=== PATIENT | female | born 1995 | race Caucasian/White ===

== ENCOUNTER 2022-11-26 23:53 | Emergency (ER) | payer OTHER, SELFPAY ==
[2022-11-26 23:54] VITALS: BP 128/84; PULSE 119; RESP 18; TEMP 36.8; O2SAT 97; BMI 18.8
--- NOTE | 2022-11-27 00:47 | RAD_ITS ---
EXAM: XR CHEST, 2 VIEWS CLINICAL INDICATION: chest pain TECHNIQUE: Frontal and lateral views of the chest. This report was created using [employer] report generation technology. COMPARISON: None. FINDINGS: LUNGS AND PLEURAL SPACES: Right middle lobe consolidation. No pneumothorax. No effusion. HEART: Unremarkable. Cardiac silhouette not enlarged. MEDIASTINUM: Central airways and mediastinal contour are unremarkable. BONES/JOINTS: Unremarkable. SOFT TISSUES: Unremarkable. RAD/Chest PA and Lateral IMPRESSION: Right middle lobe consolidation. Findings consistent with pneumonia. Electronically Signed: Romel Hope MD at 1:24 EST ,
--- NOTE | 2022-11-27 00:49 | EKG12_ITS ---
Test Reason : CP Blood Pressure : / mmHG Vent. Rate : 094 BPM Atrial Rate : 094 BPM P-R Int : 126 ms QRS Dur : 078 ms QT Int : 334 ms P-R-T Axes : 070 064 046 degrees QTc Int : 417 ms Normal sinus rhythm Normal ECG Confirmed by ELIZABETH DILLON, ALEISHA ([id number]), visual effects editor SHANNON BRIONES ([id number]) on 11/28/2022 12:40:26 PM Referred By: Confirmed By:ALEISHA JOHNSON MD
[2022-11-27 01:11] LABS: Absolute Lymphocyte Count 1.02 X10^3/uL (0.83-4.51); Absolute Neutrophil Count 8.9 X10^3/uL (2.0-7.7); Basophil# 0.06 X10^3/uL; Basophil% 0.5 % (0-1); Hematocrit 38.5 % (37-47); Hemoglobin 12.4 g/dL (12.0-15.0); Lymphocyte # 1.02 X10^3/ul (0.83-4.51); Lymphocyte % 9.2 % (19-41); Mean Corp Hgb Conc 32.2 g/dL (32-36); Mean Corpuscular Hgb 27.4 pg (27.0-32.0); Mean Platelet Vol. 8.2 fl (6.2-12.0); Monocyte# 1.06 X10^3/uL; Monocyte% 9.5 % (0-10); NRBC Flagged by Analyzer 0 % (0-5); Neutrophil # 8.91 X10^3/uL (2.7-7.7); Neutrophil % 80.2 % (47-70); Platelet Count 245 K/mm3 (150-450); RBC Distribution Width CV 13.3 % (11.6-14.6); RBC Distribution Width SD 41.3 fl (35.1-43.9); Red Blood Count 4.53 M/mm3 (4.2-5.4); White Blood Count 11.1 K/mm3 (4.4-11.0)
[2022-11-27 01:30] LABS: D-Dimer Quantitative (DVT/PE) 1.22 FEU/ug/m (0.27-0.49)
--- NOTE | 2022-11-27 01:31 | CT_ITS ---
EXAM: CT ANGIOGRAPHY CHEST WITHOUT AND WITH INTRAVENOUS CONTRAST CLINICAL INDICATION: elevated ddimer TECHNIQUE: Helically acquired angiography images were obtained of the chest without and with intravenous contrast. This CT exam was performed using one or more of the following dose reduction techniques: automated exposure control, adjustment of the mA and/or kV according to patient size, and/or use of iterative reconstruction technique. This report was created using [employer] report generation technology. MIP reconstructed images were created and reviewed. CONTRAST: IV 75mL Isovue-370 COMPARISON: Plain film from same date. FINDINGS: PULMONARY ARTERIES: Unremarkable. Normal in caliber. No evidence of pulmonary embolism. AORTA: Unremarkable. Normal in caliber. No evidence of dissection. GREAT VESSELS OF AORTIC ARCH: Unremarkable. Normal in caliber. No evidence of dissection. LUNGS AND PLEURAL SPACES: Possible endobronchial lesion in the right middle lobe bronchus seen on axial images 114 through 117. Right middle lobe collapse/consolidation. Small right pleural effusion. No pneumothorax. HEART: Unremarkable. Heart size is normal. No pericardial effusion. No signs of right heart strain, ratio of right ventricle to left ventricle measures less than 1. MEDIASTINUM: Subcarinal and right hilar adenopathy, measuring up to 1.3 cm. Esophagus is unremarkable. No hiatal hernia. THYROID: Unremarkable. No thyroid lesions. BONES/JOINTS: Unremarkable. No suspicious lytic or blastic abnormality. CT/CTA Chest W/WO Contrast IMPRESSION: 1. Right middle lobe collapse/consolidation. While this may indicate pneumonia, there is a possible endobronchial lesion within the right middle lobe bronchus. Pulmonology follow-up is recommended with consideration for bronchoscopy. 2. Subcarinal and right hilar adenopathy, measuring up to 1.3 cm. 3. No evidence of pulmonary embolism. 4. Small right pleural effusion. Electronically Signed: Romel Hope MD at 2:21 EST ,
[2022-11-27 01:42] LABS: ALB/GLOB Ratio 0.9 RATIO (0.9-2.4); AST(SGOT) 7 U/L (15-37); Alanine Aminotransfer ALT/SGPT 11 U/L (13-56); Albumin, Serum 3.5 g/dL (3.2-5.0); Alkaline Phosphatase 64 U/L (45-117); Anion Gap 6 (5-15); BUN 12 mg/dL (7-18); BUN/Creat Ratio 16.8 RATIO (10-20); Chloride 106 mmol/L (98-107); Creatinine, Serum 0.71 mg/dL (0.55-1.02); EST Glomerular Filtration Rate 105 mL/min (>60); Est Glom Filt Rate - Afr Amer 126 mL/min (>60); Estimated Creatinine Clearance 88.71 ml/min; Globulin 4.1 g/dL (2.2-4.2); Glucose 151 mg/dL (74-106); Protein, Total 7.6 g/dL (6.4-8.2); Sodium Level 138 mmol/L (136-145)
[2022-11-27 02:09] VITALS: PULSE 97; RESP 18; O2SAT 99
--- NOTE | 2022-11-27 02:52 | EX.ED.DYSGE1 ---
HPI History of Present Illness Chief Complaint: Chest Pain Narrative Narrative: Patient is a 26-year-old female with past medical history of Graves' disease. She states she has had a few weeks of congestion and cough. She states that she felt symptoms were improving but then she developed increasing right lower chest pain. She denies any family history of cardiac disease at a young age. She denies any recent travel surgery or history of DVT/PE. She states that she is concerned that she is developing pneumonia based on her persistent cough and now chest discomfort and with this comes in for evaluation [facility] Medical History (Updated 11/27/22 @ 02:[address] Jatin Lundberg, DO) Graves disease Home Medications doxycycline monohydrate 100 mg capsule 100 mg PO BID #20 CAPSULES 11/27/22 [Rx Last Taken Unknown] promethazine 6.25 mg-codeine 10 mg/5 mL syrup 5 ml PO 4X/DAY PRN PRN cough 7 days #140 mL 11/27/22 [Rx Last Taken Unknown] Allergy/AdvReac Type Severity Reaction Status Date / Time latex Allergy Rash Verified 11/26/22 23:56 Social History Smoking Status: Never smoker ROS ROS ED Constitutional Constitutional ED: Denies chills or fever(s) ENT ENT ED: Reports rhinorrhea and sore throat Cardiovascular Cardiovascular: Reports chest pain Respiratory/Chest Respiratory/Chest: Reports cough; Denies dyspnea Gastrointestinal Gastrointestinal: Denies abdominal pain, diarrhea, nausea or vomiting Genitourinary Genitourinary ED: Denies dysuria Musculoskeletal Musculoskeletal: Reports myalgias Integumentary Denies rash Neurologic Neurologic: Denies headache(s) Hematologic/Lymphatic Hematologic/Lymphatic: Denies easy bleeding or easy bruising EXAM Physical Exam Const Vital Signs: 11/26/22 23:54 11/27/22 02:09 11/27/22 03:01 Temperature 98.2 F Temperature Source Temporal Pulse Rate 119 H 97 95 Respiratory Rate 18 18 18 Blood Pressure 128/84 H 137/60 H Blood Pressure Mean 98 Pulse Ox 97 99 97 Oxygen Delivery Method Room Air Room Air Positive well nourished and well developed General Appearance ED: well developed HEENT Reports moist mucous membranes HEENT Narrative: Cobblestoning noted in the posterior pharynx consistent with sinus drainage without airway edema or compromise. No signs of infection in the posterior pharynx Eyes PERRL and EOMs intact bilaterally Neck supple and no JVD Chest Wall palpation of chest normal Chest Narrative: No bony deformity or crepitance Resp normal respiratory effort Resp Narrative: Breath sounds are diminished in the right lower lobe with rhonchi at this site concerning for developing pneumonia however no nasal flaring retractions tachypnea or accessory muscle use Cardio regular rhythm Rate: tachycardic and other Other Details: Tachycardic rate with regular rhythm radial pulses are plus 2 out of 4 bilaterally are equal and symmetric GI normal to inspection, nondistended, normoactive bowel sounds, non-tender, non-distended and no masses Auscultation: normoactive bowel sounds Palpation: soft Extremity normal to inspection Extremity Narrative: No asymmetric edema no pitting edema negative Homans' sign bilaterally Neuro oriented x3 and CN's II-XII intact bilaterally Sensorium / Orientation: alert Psych mental status grossly normal Skin no rashes or lesions noted MDM MDM MDM Narrative Medical decision making narrative: Patient presented to the ER mildly tachycardic but otherwise afebrile and in no acute respiratory distress. She is low risk for cardiac disease as well as PE/DVT but with her chest pain and tachycardia I did elect to perform a D-dimer. D-dimer is elevated at 1.22 and therefore with concern for developing pulmonary embolus as a cause of her symptoms a CTA was obtained. CTA revealed a lesion in the right lower lobe consistent with developing pneumonia versus endobronchial obstruction but no PE or pneumothorax or pleural effusion. The patient does not have signs of respiratory distress she is not requiring supplemental oxygen she does not have severe electrolyte derangement or acute kidney injury. Therefore at this time we will place the patient on antibiotics secondary to developing infection based on the x-ray and CAT scan. However because there is a possible endobronchial lesion and she may need a bronchoscopy she will also be referred to pulmonology. As she is not in acute respiratory distress or requiring supplemental oxygen there is no need for admission or emergent consultation. Lab Data Attestation: I reviewed the patient's lab results. Labs: Laboratory Results - last 24 hr 11/27/22 11/27/22 11/27/22 01:03 01:03 01:03 WBC 11.1 H RBC 4.53 Hgb 12.4 Hct 38.5 MCV 85.0 MCH 27.4 MCHC 32.2 RDW Std Deviation 41.3 RDW Coeff of Kimmie 13.3 Plt Count 245 MPV 8.2 Immature Gran % (Auto) 0.600 Neut % (Auto) 80.2 H Lymph % (Auto) 9.2 L [place] % (Auto) 9.5 Eos % (Auto) 0.0 Baso % (Auto) 0.5 Absolute Neuts (auto) 8.9 H Absolute Lymphs (auto) 1.02 Nucleated RBC % 0 D-Dimer Quant (PE/DVT) 1.22 H* Sodium 138 Potassium 4.0 Chloride 106 Carbon Dioxide 26.0 Anion Gap 6 BUN 12 Creatinine 0.71 Estim Creat Clear Calc 88.71 Est GFR (MDRD) Af Amer 126 Est GFR (MDRD) Non-Af 105 BUN/Creatinine Ratio 16.8 Glucose 151 H Calcium 9.0 Total Bilirubin 0.40 AST 7 L ALT 11 L Alkaline Phosphatase 64 Total Protein 7.6 Albumin 3.5 Globulin 4.1 Albumin/Globulin Ratio 0.9 Radiography Diagnostic Testing: Clinical Impression(s) from Imaging Studies Chest X-Ray 11/27/22 00:47 IMPRESSION: Right middle lobe consolidation. Findings consistent with pneumonia. Electronically Signed: Romel Hope MD at 1:24 EST Reading Location ID and State: [facility] / [place] Tel , Service support , Chest CTA 11/27/22 01:31 IMPRESSION: 1. Right middle lobe collapse/consolidation. While this may indicate pneumonia, there is a possible endobronchial lesion within the right middle lobe bronchus. Pulmonology follow-up is recommended with consideration for bronchoscopy. 2. Subcarinal and right hilar adenopathy, measuring up to 1.3 cm. 3. No evidence of pulmonary embolism. 4. Small right pleural effusion. Electronically Signed: Romel Hope MD at 2:21 EST , Chest x-ray as interpreted by the emergency medicine physician reveals right middle to lower lobe consolidation without pneumothorax or pleural effusion Discharge Plan Triage Chief Complaint: Chest Pain ED Provider: Jatin Lundberg Dx/Rx/DC Orders Clinical Impression: Right lower lobe pneumonia Instructions: ED Pneumonia (Adult) Prescriptions: New doxycycline monohydrate 100 mg capsule 100 mg PO BID Qty: 20 0RF promethazine-codeine 6.25-10 mg/5 mL syrup 5 ml PO 4X/DAY PRN PRN (Reason: cough) 7 Days Qty: 140 0RF Stand Alone Forms: Work / School Excuse Primary Care Provider: Care Physician,No Primary Referrals: Malik Root MD [Med Staff - Active Staff] - Care Physician,No Primary [Primary Care Provider] - Activity Restrictions/Additional Instructions: Please take your medications as directed to help control/resolve your symptoms. Follow-up with pulmonology to discuss need for bronchoscopy and return to the ER should you have any further concerns. Disposition Disposition: Home, Self Care Discharge Date/Time: 11/27/22 03:01
[2022-11-27 03:01] VITALS: BP 137/60; PULSE 95; RESP 18; O2SAT 97
== END 2022-11-27 03:01 | disposition home or self-care (01) ==
PROVIDERS: Emergency Provider Emergency Medicine; Visit Provider Emergency Medicine
DX: J18.9 Pneumonia, unspecified organism (principal)
CPT/HCPCS: 71046; 71275; 80053; 85025; 85379; 93005; 99282; Q9967; A4216

== ENCOUNTER → 2022-12-16 | Outpatient (CLI) | payer OTHER, SELFPAY ==
--- NOTE | 2022-12-16 14:35 | RAD_ITS ---
EXAM: XR CHEST, 2 VIEWS CLINICAL INDICATION: cough TECHNIQUE: Frontal and lateral views of the chest. This report was created using [employer] report generation technology. COMPARISON: 11/27/2022 FINDINGS: LUNGS AND PLEURAL SPACES: There is again haziness seen within the right midlung which may represent developing right middle lobe pneumonia. No pneumothorax. No effusion. HEART: Unremarkable. Cardiac silhouette not enlarged. MEDIASTINUM: Central airways and mediastinal contour are unremarkable. BONES/JOINTS: Unremarkable. SOFT TISSUES: Unremarkable. RAD/Chest PA and Lateral IMPRESSION: Persistent haziness in the right midlung which may represent right middle lobe pneumonia. Electronically Signed: Real Miramontes MD at 0:12 EDT ,
[2022-12-16 15:37] LABS: Thyroid Stim Hormone (TSH) 1.83 uIU/mL (0.358-3.74)
== END | disposition home or self-care (01) ==
PROVIDERS: Visit Provider Internal Medicine
DX: E05.00 Thyrotoxicosis with diffuse goiter without thyrotoxic crisis or storm (principal); R05.9 Cough, unspecified
CPT/HCPCS: 36415; 71046; 84443

== ENCOUNTER → 2023-01-02 | Outpatient (CLI) | payer OTHER, SELFPAY ==
[2023-01-02 15:46] LABS: Hematocrit 38.3 % (37-47); Hemoglobin 12.3 g/dL (12.0-15.0); Mean Corp Hgb Conc 32.1 g/dL (32-36); Mean Corpuscular Hgb 27.3 pg (27.0-32.0); Mean Corpuscular Volume 85.1 fL (81-99); Mean Platelet Vol. 8.7 fl (6.2-12.0); Platelet Count 276 K/mm3 (150-450); RBC Distribution Width CV 13.3 % (11.6-14.6); RBC Distribution Width SD 41.4 fl (35.1-43.9)
[2023-01-02 15:55] LABS: International Normalized Ratio 1.1; Prothrombin Time (Protime)PT. 13.6 SECONDS (11.7-14.9)
[2023-01-02 15:56] LABS: Partial Thromboplast Time 28.5 Seconds (24.1-36.2)
[2023-01-02 16:17] LABS: Anion Gap 4 (5-15); BUN 12 mg/dL (7-18); Calcium,Total 8.7 mg/dL (8.5-10.1); Chloride 109 mmol/L (98-107); EST Glomerular Filtration Rate 106 mL/min (>60); Est Glom Filt Rate - Afr Amer 128 mL/min (>60); Glucose 87 mg/dL (74-106); Potassium 3.8 mmol/L (3.5-5.1); Sodium Level 140 mmol/L (136-145)
== END | disposition home or self-care (01) ==
LOC: LAB 15:13
PROVIDERS: Referring Provider Nurse Practitioner Acute Care; Visit Provider Nurse Practitioner Acute Care
DX: R05.9 Cough, unspecified (principal); I48.91 Unspecified atrial fibrillation
CPT/HCPCS: 36415; 80048; 85027; 85610; 85730

== ENCOUNTER → 2023-01-08 | Outpatient (CLI) | payer OTHER, SELFPAY ==
--- NOTE | 2023-01-08 07:03 | CT_ITS ---
STUDY: CT CHEST WITH CONTRAST REASON FOR EXAM: Female, 27 years old. Endobronchial mass -- with pending bronchoscopy RADIATION DOSAGE (If Supplied By Facility): CTDIvol = ( 7.31 ) mGy, DLP = ( 171.16 ) mGycm TECHNIQUE: Transaxial imaging was performed following intravenous administration of IV 75mL Isovue-300. Multiplanar coronal and sagittal images were reformatted. Individualized dose optimization techniques were used for this CT. COMPARISON: Comparison is made with prior examination August 27, 2023. FINDINGS: CHEST There is partial collapse of the right middle lobe. There is a soft tissue density within the right middle lobe bronchus. Correlation with bronchoscopy is recommended. The amount of volume loss in the right middle lobe as improved as compared to prior study. The remainder of the examination is unremarkable. There is no demonstrated pleural abnormality. Normal heart and pericardium. Normal mediastinum. Normal hilar regions. Normal unenhanced pulmonary arteries. Normal aorta arch and descending thoracic aorta. Normal osseous structures. There is no demonstrated abnormality of the visualized upper abdomen. CT/Chest WITH Contrast IMPRESSION: Almost complete collapse of the right middle lobe with soft tissue density seen within the corresponding bronchus. This has improved as compared to prior study. Correlation with bronchoscopy is recommended. Electronically Signed: Juan Daniel Valentine MD at 14:36 EDT ,
== END | disposition home or self-care (01) ==
PROVIDERS: Referring Provider Nurse Practitioner Acute Care; Visit Provider Nurse Practitioner Acute Care
DX: R91.8 Other nonspecific abnormal finding of lung field (principal)
CPT/HCPCS: 71260; Q9967

== ENCOUNTER 2023-01-09 11:49 | Day surgery (SDC) | payer OTHER, SELFPAY ==
[2023-01-09] VITALS (7 sets, daily range): BP systolic 98–113; BP diastolic 64–75; PULSE 52–68; RESP 14–16; TEMP 36.4; O2SAT 99–100; BMI 18.9
--- NOTE | 2023-01-09 | FLU_PTH ---
PATIENT: KATARINA DUBON LOC: EN U#:[id number] AGE/SX: 27/F ROOM: RE01/09/[address]: Dr. Benedicto Burnham MD : 1995 BED: DIS: 01/09/2023 SPEC #: [id number] RECD: 01/09/23 14:26 STATUS: NATHANAEL RERogelio #: [id number] HUEY: 01/09/23 00:[address]: Benedicto Burnham DEPT: CYTOLOGY RECD BY: Tez Cooper ENTERED: 01/12/23 10:11 SP TYPE: Fluid OTHR DR: Emily Primary Care Phys Tissues: Lung, NOS Procedures: PC (control) Special Stain Group II Special Stain Group I Surgery Specimen Level IV AFB Stain (control) GMS Stain (control) Cytospin Fluid HEADER OPERATION: Bronchoscopy (MAC) with endobronchial biopsy PRE-OP DIAGNOSIS: Right middle lobe endobronchial mass TISSUE SUBMITTED: Right middle lobe washings DIAGNOSIS CYTOLOGY Right middle lobe washings fluid (cytospin and cell block): Negative for malignant cells. See comment. JAXON:anjel 01/13/2023 COMMENT Special stains for acid fast bacilli, fungi and pneumocystis carinii are negative for organisms; matched controls are appropriate. Correlation with clinical, radiologic findings and appropriate follow up are necessary. Please also correlate with corresponding surgical specimen [id number], tumor right middle lobe, endobronchial biopsy with diagnosis of ? carcinoid tumor (well-differentiated neuroendocrine tumor).? Case has been reviewed in consultation with Dr. Engel who concurs with the above diagnosis. IDC:AM CYTOLOGY STUDY Slides are reviewed. CYTOLOGY GROSS Received is 45 ml of mucoidy cloudy fluid labeled with the patient's name and and designated per the requisition as right middle lobe washings. Submitted for cytology preparation including cell block. / anjel 01/12/2023 TC:5 CPT: 09169, 95467, 48576 x3
--- NOTE | 2023-01-09 | IMM_PTH ---
PATIENT: KATARINA DUBON LOC: EN U#:[id number] AGE/SX: 27/F ROOM: RE01/09/[address]: Dr. Benedicto Burnham MD : 1995 BED: DIS: 01/09/2023 SPEC #: [id number] RECD: 01/13/23 13:46 STATUS: NATHANAEL REQ #: [id number] HUEY: 01/09/23 00:[address]: Benedicto Burnham DEPT: IMMUNOHISTOCHEMISTRY RECD BY: Priyanka Dominguez ENTERED: 01/13/23 13:48 SP TYPE: IMMUNO OTHR DR: No Primary Care Phys Tissues: Right middle lobe of lung, NOS Procedures: Synapto (add) CD45 (add) CD56 (add) CHROMO (add) CK20 (add) CK7 (add) CK8 (add) KI-67 (add) P53 (add) TTF1 (add) Pankeratin (initial) PHYSICIAN & [address] [address] SPECIMEN INFORMATION: Tissue Source: Tumor right middle lobe Clinical Info: Right middle lobe bronchial mass Specimen Number: [id number] CPT code: 34116, 17252 x10 METHODOLOGY: Deparaffinized sections of prefer/formalin-fixed tissue or PAP/DQ stained slides are incubated with monoclonal/polyclonal antibodies/oligonucleotide probes. Localization is made via biotin free immunoperoxidase method. Appropriate controls are performed and reacted as expected. Results on target cell population are indicated in the following table: RESULTS: ANTIBODY / CLONE RESULT AE1-3 (AE1/AE3/PCK26) positive, perinuclear dot like pattern CK7 (OV-TL12/30) negative CK8 (20yxsnK24) positive, perinuclear dot like pattern CK20 (KS20.8) negative CD45 (RP2/18) negative CD56 (123C3.D5) positive Chromo (LK2H10) positive Synapto (polyclonal) positive TTF-1 (8G7G3/1) negative Ki-67 (30-9) positive, very low, ~1-2% P53 (DO-7) positive, rare cells, weak, (wild type pattern) These tests were developed and their performance characteristics determined by [facility]. They may not have been cleared or approved by the U.S. Food and Drug Administration. The FDA has determined that such clearance or approval is not necessary. The above immunohistochemical/dualISH markers are ordered and reviewed by the Pathologist. INTERPRETATION: Tumor right middle lobe, endobronchial biopsy: Ccarcinoid tumor (well-differentiated neuroendocrine tumor). This case has been reviewed in consultation with Dr. Engel who concurs with the above diagnosis. SJ:anjel 01/14/2023
--- NOTE | 2023-01-09 | LUNG_PTH ---
PATIENT: KATARINA DUBON LOC: EN U#:[id number] AGE/SX: 27/F ROOM: RE01/09/[address]: Dr. Benedicto Burnham MD : 1995 BED: DIS: 01/09/2023 SPEC #: [id number] RECD: 01/09/23 14:26 STATUS: NATHANAEL REQ #: [id number] HUEY: 01/09/23 00:[address]: Benedicto Burnham DEPT: SURGICAL PATHOLOGY RECD BY: Tez Cooper ENTERED: 01/12/23 10:11 SP TYPE: LUNG BX OTHR DR: Emily Primary Care Phys Tissues: Lung, NOS Procedures: PC (control) Special Stain Group I Surgery Specimen Level IV AFB Stain (control) GMS Stain (control) HEADER OPERATION: Bronchoscopy (MAC) with endobronchial biopsy PRE-OP DIAGNOSIS: Right middle lobe endobronchial mass TISSUE SUBMITTED: Tumor right middle lobe MICROSCOPIC DIAGNOSIS Tumor right middle lobe, endobronchial biopsy: Carcinoid tumor (Well-differentiated neuroendocrine tumor). See comment. JAXON:anjel 01/13/2023 COMMENT Immunohistochemistry ([id number]) supports the above diagnosis. Mitosis or necrosis are not seen. Special stains for acid fast bacilli, fungi and pneumocystis carinii are negative for organisms; matched controls are appropriate. Correlation with clinical, radiologic findings and appropriate follow up are necessary. Case has been reviewed in consultation with Dr. Engel who concurs with the above diagnosis. IDC:AM MICROSCOPIC DESCRIPTION Slides are reviewed. GROSS DESCRIPTION Received in fixative is one container labeled with the patient's name and designated tumor right middle lobe. The specimen consists of multiple irregular fragments of light holliday soft tissue that in aggregate measure 1.0 x 0.5 x 0.1 cm. The specimen is totally submitted in one cassette. / JAXON:anjel 01/12/2023 TC:1 CPT: 51844, 68175 x3
[2023-01-09] MEDS: Lactated Ringers 1,000 ML 15 ML IV (12:21)
[2023-01-09 12:24] LABS: Internal QC Validated? YES +Cl - CLEAR BKGD; Pregnancy, Urine Negative Negative
--- NOTE | 2023-01-09 13:00 | PCM.HP.STD ---
HPI - General General Date of Service: 01/09/23 Chief Complaint: Cough HPI Narrative This 27-year-old woman presents for an elective outpatient bronchoscopy to evaluate her right middle lobe endobronchial mass. The patient was seen in the hospital for a right middle lobe pneumonia on 11/27/2022.? She had a medial segment right middle lobe infiltrate, white count of 11.1, with 80% neutrophilsNormal eosinophils, and an elevated D-dimer.? She was treated with antibiotics and improved.? She is a never smoker does not use drugs never vape.? Because of this risk profile and the slow clearance of the right middle lobe pneumonia and appearance of probable endobronchial lesion on CAT scan, she came back for repeat study and elective bronchoscopy. She has no carcinoid symptoms.? She has a history of Graves' disease, chronic cough, but is otherwise healthy. Today's vital signs are 113/65 pulse 60, respirations 16, temperature 97.6.? O2 saturations is 100% on room air. Physical exam will be dictated separately with a bronchoscopy note. Prebronchoscopy labs from 01/02/2023 were reviewed and found to be acceptable for bronchoscopy including chemistries, CBC and coagulation profile.? Her white count is normal, and TSH on 12/16/2022 was normal at 123 her urine test today is negative. Chest CT scan images and report was reviewed from 01/08/2023.? It shows persistence of the right middle lobe endobronchial mass, right middle lobe atelectasis medial segment.? No effusion PFSH Medical History (Updated 01/05/23 @ 13:37 by Amalia Zamora) Alcohol use Anemia Graves disease History of pneumonia Non-smoker Wears contact lenses Home Medications NK 01/05/23 [History Last Taken Unknown] Allergy/AdvReac Type Severity Reaction Status Date / Time latex Allergy Rash Verified 01/09/23 12:19 Family History (Updated 12/16/22 @ 13:53 by Edel Jackman) Grandfather Heart disease Surgical History (Updated 01/05/23 @ 13:37 by Amalia Zamora) Hx of eye surgery [place] teeth extracted Social History (Updated 12/16/22 @ 13:52 by Edel Jackman) adopted: No household members: none housing: apartment current occupational status: employed current occupation: [employer] Smoking Status: Never smoker Vital Signs Vital Signs Vital Signs: 01/09/23 12:19 01/09/23 12:19 Temperature 97.6 F L Temperature Source Temporal Pulse Rate 60 Respiratory Rate 16 Respiratory Pattern Normal Blood Pressure 113/65 Blood Pressure Mean 81 Blood Pressure Source Monitor Blood Pressure Position Semi-Fowlers Blood Pressure Location Right Arm Pulse Ox 100 Oxygen Delivery Method Room Air Weight Weight: 103 lb 9.876 oz Body Mass Index (BMI) 18.9 Reviewed preprocedure for 723 Results Medical Records Data Attestation: I reviewed the patient's medical records Medical records narrative: Prebronchoscopy labs from 01/02/2023 were reviewed and found to be acceptable for bronchoscopy including chemistries, CBC and coagulation profile.? Her white count is normal, and TSH on 12/16/2022 was normal at 123 her urine test today is negative. Chest CT scan images and report was reviewed from 01/08/2023.? It shows persistence of the right middle lobe endobronchial mass, right middle lobe atelectasis medial segment.? No effusion Lab / Micro Data Labs: Laboratory Results - last 24 hr 01/09/23 12:00: Urine Test Negative Assessment & Plan Assessment/Plan (1) Endobronchial mass: (2) Graves disease: (3) History of pneumonia: PLAN: Plan Impression: 1.? Postobstructive right middle lobe medial segment pneumonia, due to persistent endobronchial mass on CT scan of the chest.? Possible carcinoid versus other nonneoplastic or neoplastic mass.? Prebronchoscopy labs are acceptable to proceed with bronchoscopy, and persistent mass on chest CT scan yesterday shows the indication for bronchoscopy persists. 2.? Graves' disease, well controlled. 3.? Possible carcinoid tumor, with no carcinoid syndrome symptoms Plan: Proceed with elective bronchoscopy.? See operative notes.
--- NOTE | 2023-01-09 14:20 | PCM.OP.PRO ---
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 Tumor occluded 80% of the airway, unable to push the scope past the primary lesion for distal inspection. Type to be determined on pathology with special stains. - Sample sent for washings: Culture and sensitivity, AFB smear and culture, cytospin, with neuroendocrine markers and germ cell tumor markers. - Endobronchial biopsy x5, sent for routine histopathology plus neuroendocrine and germ cell tumor markers. - Patient can be discharged when she reaches normal discharge criteria - I expect a small amount of hemoptysis for 1 to 3 days. PLAN: Plan As above Patient tolerated the procedure well, 100% O2 saturation on room air with stable vital signs in the PACU immediately after the procedure, awake, alert, talking. Procedure Report Date of Procedure: 01/09/23 Patient physical exam prior to the procedure: (the patient's mother was present at the bedside at the time of exam) Unchanged from office visit note. Airway is Mallampati 2, lungs are clear bilaterally with no wheezes rales or rhonchi. No focal consolidation. No pleural rub. Cardiac: Normal S1-S2 with no murmurs rubs or gallops Extremities have no clubbing cyanosis or edema Skin is normal, warm and dry. No rash or lesions. Neuro: Nonfocal. Patient able to make her own decisions, alert and oriented x3 Video bronchoscopy, with endobronchial biopsies, washing, under moderate conscious sedation. Indication: Right middle lobe mass with postobstructive pneumonia/atelectasis of the medial right middle lobe segment After prebronchoscopy labs and CT scan were reviewed and found to be acceptable for the procedure, and informed consent was obtained, the patient had moderate conscious sedation under moderate anesthesia care in the endoscopy unit. After an adequate level of sedation was obtained, the video bronchoscope was introduced via the oral route with a pediatric bite-block in place. The airway was entered on the first bronchoscope pass, and remained in place for the 27 minutes of the procedure. The upper airway was normal, the vocal cords moved well bilaterally, no vocal cord lesions erythema or mass were noted. The trachea was normal throughout its length with no masses,'s stricture, erythema or thrush. The elvin was sharp, and the airways were widely patent. Secretions were clear and thin, with no purulence or blood noted. After instilling 2 cc of 2% lidocaine total down the right and left mainstem bronchus,, the left lung was inspected and found to be normal to the second segmental bronchus level. The right upper lobe and right lower lobe were inspected and found to be normal to the second segmental bronchus level. At the entry of the right middle lobe, shiny, lobulated, pale pinkish-white tumor was found, and obstructed the airway by 80%. The tumor was firmly adherent to the posterior medial wall of the right middle lobe and seem to be emanating from it. I could not push past the primary lesion to further examine the distal right middle lobe. After instilling epinephrine 3 cc of 1-10,000 dilution directly over the tumor, additional 2 cc of 2% lidocaine, and a bolus of fentanyl and propofol to maintain conscious sedation, comfort, and minimize coughing. Approximately 5 endobronchial biopsies were obtained using an alligator jaw forcep. Approximately 10 cc of bleeding total were noted, 2 additional aliquots of 3 cc of 1-10,000 epinephrine were instilled intermittently, with control of bleeding between biopsies. Intermittently during the procedure and at the end of the procedure, aliquots of 5 to 10 cc of iced saline washes were instilled in the right middle lobe bronchus and right lower lobe, and suctioned back for bronchial wash samples, numbered #1 and 2. Samples Bronchial washings #1 and 2: Cell count and differential, culture and sensitivity, AFB smear and culture, pneumocystis, virus, fungus, and cytospin for routine cytology, neuroendocrine and germ cell tumor markers. Endobronchial biopsies #1 through 5 were placed in formalin. Sent for routine histopathology,neuroendocrine and germ cell tumor markers. Tolerated well. Stable vitals throughout procedure. Patient awake and alert and conversant at the completion of the procedure. Transported to PACU in good condition. Chest x-ray ordered. Follow-up exam in PACU showed patient with 100% O2 saturation on room air and stable vitals, drowsy but easily awakened, conversing intelligibly, nonfocal. Impression: 1. 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 2. Patient is at high risk for recurrent pneumonia 3. Graves' disease, well controlled 4. Latex allergy 5. TM joint pain for a few days preop, a pediatric bite block was used for the bronchoscopy, the patient had no complaints of jaw pain at the end of the procedure or in PACU. Plan: 1. Await pathology, tumor marker, and special stain results. 2. If positive for carcinoid, obtain a dotatate PET scan for evaluation of tumor extent. 3. Other interventions to await definitive diagnosis. 4. The patient's mother and patient were updated after the procedure. They were alerted the patient may cough up blood for 1 to 3 days but should come to the hospital if the quantity is significant or her dyspnea increases or if fevers occur that do not resolve within a few hours. No carcinoid symptoms occurred during the procedure. 5. Follow-up in the office in 3 weeks after results are back.
--- NOTE | 2023-01-09 14:25 | RAD_ITS ---
STUDY: X-RAY CHEST REASON FOR EXAM: Female, 27 years old. Post bronchoscopy, right middle lobe tumor TECHNIQUE: Single AP portable view of the chest. COMPARISON: Comparison is made with prior examination dated December 16, 2022. FINDINGS: EKG electrodes are seen. Persistent infiltrate in the right middle lobe. A tiny collection of air is seen within it most likely from a recent bronchoscopy and biopsy. No evidence of pneumothorax. There is no demonstrated pleural abnormality. Normal size heart. Normal mediastinum and melody. Normal visualized pulmonary arteries. Normal visualized aortic arch and descending thoracic aorta. Normal visualized thoracic spine. Normal visualized ribs, clavicles, and shoulders. There is no demonstrated abnormality of the visualized soft tissue structures of the upper abdomen. RAD/Chest 1 View IMPRESSION: Status post bronchoscopy on the right side with persistent increased markings in the right middle lobe. Electronically Signed: Juan Daniel Valentine MD at 14:52 EDT ,
[2023-01-09 14:34] LABS: Cytology, Body Fluid / CSF SEE PATHOLOGY REPORT
--- NOTE | 2023-01-09 15:06 | OP.BRONCH_ITS ---
Patient Name: Violet Dubon Procedure Date: 01/09/2023 12:52 PM Date of : 1995 Age: 27 Procedure: Bronchoscopy Indications: Right middle lobe mass Providers: Benedicto Brunham MD Medicines: Fentanyl 75 mcg IV, Propofol per Anesthesia, Lidocaine 2% applied to cords 2 mL, Lidocaine 2% applied to the tracheobronchial tree 8 mL Complications: No immediate complications. Estimated blood loss: Minimal Procedure: Pre-Anesthesia Assessment: - A History and Physical has been performed. Patient meds and allergies have been reviewed. The risks and benefits of the procedure and the sedation options and risks were discussed with the patient. All questions were answered and informed consent was obtained. Patient identification and proposed procedure were verified prior to the procedure by the physician, the nurse and the mink farmer in the pre-procedure area. Mental Status Examination: alert and oriented. Airway Examination: normal oropharyngeal airway and Mallampati Class II (the uvula but not tonsillar pillars visualized). Respiratory Examination: clear to auscultation. CV Examination: normal. ASA Grade Assessment: II - A patient with mild systemic disease. After reviewing the risks and benefits, the patient was deemed in satisfactory condition to undergo the procedure. The anesthesia plan was to use moderate sedation / analgesia (conscious sedation). Immediately prior to administration of medications, the patient was re-assessed for adequacy to receive sedatives. The heart rate, respiratory rate, oxygen saturations, blood pressure, adequacy of pulmonary ventilation, and response to care were monitored throughout the procedure. The physical status of the patient was re-assessed after the procedure. After I obtained informed consent, the scope was passed under direct vision. Throughout the procedure, the patient's blood pressure, pulse, and oxygen saturations were monitored continuously. The bronchoscope was introduced through the mouth, via face mask and advanced to the tracheobronchial tree. The procedure was accomplished without difficulty. The patient tolerated the procedure well. The total duration of the procedure was 27 minutes. 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 Tumor occluded 80% of the airway, unable to push the scope past the primary lesion for distal inspection. Type to be determined on pathology with special stains. - Sample sent for washings: Culture and sensitivity, AFB smear and culture, cytospin, with neuroendocrine markers and germ cell tumor markers. - Endobronchial biopsy x5, sent for routine histopathology plus neuroendocrine and germ cell tumor markers. - Patient can be discharged when she reaches normal discharge criteria - I expect a small amount of hemoptysis for 1 to 3 days. PLAN: Plan As above Patient tolerated the procedure well, 100% O2 saturation on room air with stable vital signs in the PACU immediately after the procedure, awake, alert, talking. Procedure Report Date of Procedure: 01/09/23 Patient physical exam prior to the procedure: (the patient's mother was present at the bedside at the time of exam) Unchanged from office visit note. Airway is Mallampati 2, lungs are clear bilaterally with no wheezes rales or rhonchi. No focal consolidation. No pleural rub. Cardiac: Normal S1-S2 with no murmurs rubs or gallops Extremities have no clubbing cyanosis or edema Skin is normal, warm and dry. No rash or lesions. Neuro: Nonfocal. Patient able to make her own decisions, alert and oriented x3 Video bronchoscopy, with endobronchial biopsies, washing, under moderate conscious sedation. Indication: Right middle lobe mass with postobstructive pneumonia/atelectasis of the medial right middle lobe segment After prebronchoscopy labs and CT scan were reviewed and found to be acceptable for the procedure, and informed consent was obtained, the patient had moderate conscious sedation under moderate anesthesia care in the endoscopy unit. After an adequate level of sedation was obtained, the video bronchoscope was introduced via the oral route with a pediatric bite-block in place. The airway was entered on the first bronchoscope pass, and remained in place for the 27 minutes of the procedure. The upper airway was normal, the vocal cords moved well bilaterally, no vocal cord lesions erythema or mass were noted. The trachea was normal throughout its length with no masses,'s stricture, erythema or thrush. The elvin was sharp, and the airways were widely patent. Secretions were clear and thin, with no purulence or blood noted. After instilling 2 cc of 2% lidocaine total down the right and left mainstem bronchus,, the left lung was inspected and found to be normal to the second segmental bronchus level. The right upper lobe and right lower lobe were inspected and found to be normal to the second segmental bronchus level. At the entry of the right middle lobe, shiny, lobulated, pale pinkish-white tumor was found, and obstructed the airway by 80%. The tumor was firmly adherent to the posterior medial wall of the right middle lobe and seem to be emanating from it. I could not push past the primary lesion to further examine the distal right middle lobe. After instilling epinephrine 3 cc of 1-10,000 dilution directly over the tumor, additional 2 cc of 2% lidocaine, and a bolus of fentanyl and propofol to maintain conscious sedation, comfort, and minimize coughing. Approximately 5 endobronchial biopsies were obtained using an alligator jaw forcep. Approximately 10 cc of bleeding total were noted, 2 additional aliquots of 3 cc of 1-10,000 epinephrine were instilled intermittently, with control of bleeding between biopsies. 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 Tumor occluded 80% of the airway, unable to push the scope past the primary lesion for distal inspection. Type to be determined on pathology with special stains. - Sample sent for washings: Culture and sensitivity, AFB smear and culture, cytospin, with neuroendocrine markers and germ cell tumor markers. - Endobronchial biopsy x5, sent for routine histopathology plus neuroendocrine and germ cell tumor markers. - Patient can be discharged when she reaches normal discharge criteria - I expect a small amount of hemoptysis for 1 to 3 days. PLAN: Plan As above Patient tolerated the procedure well, 100% O2 saturation on room air with stable vital signs in the PACU immediately after the procedure, awake, alert, talking. Recommendation: - Await biopsy, culture, cytology, lab and washing results. Procedure Code(s): --- Professional --- 62690, Bronchoscopy, rigid or flexible, including fluoroscopic guidance, when performed; with bronchial or endobronchial biopsy(s), single or multiple sites CPT copyright 2017 [employer]. All rights reserved. The codes documented in this report are preliminary and upon protective services case worker review may be revised to meet current compliance requirements. MD Benedicto Hernandez MD 01/09/2023 3:06:28 PM This report has been signed electronically. Number of Addenda: 0 Note Initiated On: 01/09/2023 12:52 PM
[2023-01-09 16:50] LABS: Appearance/Body Fluid TURBID; Color/Body Fluid RED; Source- Body Fluid BRONCHIAL LAVAGE
[2023-01-09 16:51] LABS: White Blood Count/Body Fluid 56 /mm3
[2023-01-09 17:57] LABS: Lymphocytes 30 %; Monocytes 14 %; Neutrophil (Segs) 25 %; Other Cell Type/BF 31 %
[2023-01-09 18:01] LABS: Body Fluid QC Type(s) BF2Q
[2023-01-13 09:36] LABS: Pathologist Comment/Body Fluid Reviewed
== END 2023-01-09 15:43 | disposition home or self-care (01) ==
LOC: EN 11:50 → AC 11:51
PROVIDERS: Anesthesiology; Referring Provider Internal Medicine; Visit Provider Internal Medicine
PROC: 0BJ08ZZ Inspection of Tracheobronchial Tree, Via Natural or Artificial Opening Endoscopic (ICD-10-PCS; CPT 31622; principal; 2023-01-09 12:45)
DX: C7A.8 Other malignant neuroendocrine tumors (principal); J18.9 Pneumonia, unspecified organism; J98.11 Atelectasis; M25.50 Pain in unspecified joint; E05.00 Thyrotoxicosis with diffuse goiter without thyrotoxic crisis or storm
CPT/HCPCS: 31625; 31623; 71045; 81025; 87015; 87070; 87116; 87205; 87206; 88108; 88305; 88312; 88313; 88341; 88342; 89050; J7120; J2405; J3490

== ENCOUNTER → 2023-06-12 | Outpatient (CLI) | payer OTHER, SELFPAY ==
[2023-06-12 18:27] LABS: Vitamin D,25 Hydroxy 33.1 ng/mL
[2023-06-12 18:30] LABS: ALB/GLOB Ratio 1.1 RATIO (0.9-2.4); AST(SGOT) 11 U/L (15-37); Alanine Aminotransfer ALT/SGPT 15 U/L (13-56); Alkaline Phosphatase 49 U/L (45-117); Anion Gap 6 (5-15); BUN 13 mg/dL (7-18); Calcium,Total 8.8 mg/dL (8.5-10.1); Chloride 110 mmol/L (98-107); Creatinine, Serum 0.81 mg/dL (0.55-1.02); EST Glomerular Filtration Rate 89 mL/min (>60); Est Glom Filt Rate - Afr Amer 108 mL/min (>60); Free T3 2.6 pg/mL (2.18-3.98); Globulin 3.7 g/dL (2.2-4.2); Glucose 102 mg/dL (74-106); Potassium 3.5 mmol/L (3.5-5.1); Protein, Total 7.7 g/dL (6.4-8.2); Sodium Level 139 mmol/L (136-145); T4 Free Direct 1.05 ng/dL (0.76-1.46); Thyroid Stim Hormone (TSH) 0.91 uIU/mL (0.358-3.74)
[2023-06-17 18:08] LABS: Adrenocorticotropic Hormone 15.9 pg/mL (7.2-63.3)
[2023-06-17 20:08] LABS: Methylmalonic Acid Bld 197 nmol/L (0-378)
== END | disposition home or self-care (01) ==
DX: R53.82 Chronic fatigue, unspecified (principal); C7A.090 Malignant carcinoid tumor of the bronchus and lung; E05.90 Thyrotoxicosis, unspecified without thyrotoxic crisis or storm
CPT/HCPCS: 80053; 82024; 82306; 82533; 83921; 84439; 84443; 84481

== ENCOUNTER → 2023-06-16 | Outpatient (CLI) | payer OTHER, SELFPAY ==
[2023-06-21 22:06] LABS: 5-HIAA, 24UR 3.4 mg/24 hr (0.0-14.9); 5-HIAA, UR 8.4 mg/L (Undefined)
== END | disposition home or self-care (01) ==
DX: C7A.090 Malignant carcinoid tumor of the bronchus and lung (principal)
CPT/HCPCS: 81050; 83497

== ENCOUNTER → 2023-08-31 | Outpatient (CLI) | payer OTHER, SELFPAY ==
[2023-08-31 12:27] LABS: ALB/GLOB Ratio 1.1 RATIO (0.9-2.4); AST(SGOT) 10 U/L (15-37); Alanine Aminotransfer ALT/SGPT 12 U/L (13-56); Albumin, Serum 3.5 g/dL (3.2-5.0); Alkaline Phosphatase 49 U/L (45-117); Anion Gap 6 (5-15); BUN 7 mg/dL (7-18); BUN/Creat Ratio 9.5 RATIO (10-20); Calcium,Total 7.9 mg/dL (8.5-10.1); Chloride 110 mmol/L (98-107); Creatinine, Serum 0.74 mg/dL (0.55-1.02); EST Glomerular Filtration Rate 100 mL/min (>60); Est Glom Filt Rate - Afr Amer 121 mL/min (>60); Globulin 3.3 g/dL (2.2-4.2); Glucose 90 mg/dL (74-106); Potassium 3.8 mmol/L (3.5-5.1); Protein, Total 6.8 g/dL (6.4-8.2); Sodium Level 141 mmol/L (136-145); T4 Free Direct 1.15 ng/dL (0.76-1.46); Thyroid Stim Hormone (TSH) 0.38 uIU/mL (0.358-3.74)
== END | disposition home or self-care (01) ==
LOC: LAB 11:38
DX: C7A.090 Malignant carcinoid tumor of the bronchus and lung (principal); E05.90 Thyrotoxicosis, unspecified without thyrotoxic crisis or storm; R53.82 Chronic fatigue, unspecified
CPT/HCPCS: 36415; 80053; 82024; 82533; 84439; 84443; 84481

== ENCOUNTER → 2023-09-01 | Outpatient (CLI) | payer OTHER, SELFPAY ==
[2023-09-01 13:06] LABS: 24HR. Urine Creatinine 0.92 g/24 HR (0.70-1.90)
[2023-09-04 16:09] LABS: 5-HIAA, 24UR 3.4 mg/24 hr (0.0-14.9)
== END | disposition home or self-care (01) ==
DX: C7A.090 Malignant carcinoid tumor of the bronchus and lung (principal)
CPT/HCPCS: 81050; 82570; 83497

== ENCOUNTER → 2023-12-23 | Outpatient (CLI) | payer OTHER, SELFPAY | END | disposition home or self-care (01) | PROVIDERS: Referring Provider Internal Medicine Critical Care Medicine; Visit Provider Internal Medicine Critical Care Medicine | DX: R05.3 Chronic cough (principal) | CPT/HCPCS: 94060; 94726; 94729 ==

== ENCOUNTER → 2024-05-25 | Outpatient (CLI) | payer OTHER, SELFPAY ==
[2024-05-25 11:19] LABS: Absolute Lymphocyte Count 1.74 X10^3/uL (0.83-4.51); Absolute Neutrophil Count 3.5 X10^3/uL (2.0-7.7); Basophil# 0.05 X10^3/uL; Basophil% 0.8 % (0-1); Eosinophil# 0.15 X10^3/uL; Eosinophils% 2.4 % (0-5); Hematocrit 40.7 % (37-47); Hemoglobin 13.1 g/dL (12.0-15.0); Lymphocyte # 1.74 X10^3/ul (0.83-4.51); Lymphocyte % 28.3 % (19-41); Mean Corp Hgb Conc 32.2 g/dL (32-36); Mean Corpuscular Hgb 26.8 pg (27.0-32.0); Mean Corpuscular Volume 83.2 fL (81-99); Mean Platelet Vol. 8.5 fl (6.2-12.0); Monocyte# 0.68 X10^3/uL; Monocyte% 11.1 % (0-10); NRBC Flagged by Analyzer 0 % (0-5); Neutrophil # 3.49 X10^3/uL (2.7-7.7); Neutrophil % 56.9 % (47-70); Platelet Count 248 K/mm3 (150-450); RBC Distribution Width CV 13.7 % (11.6-14.6); RBC Distribution Width SD 41.7 fl (35.1-43.9); Red Blood Count 4.89 M/mm3 (4.2-5.4); White Blood Count 6.1 K/mm3 (4.4-11.0)
[2024-05-25 12:00] LABS: AST(SGOT) 11 U/L (15-37); Alanine Aminotransfer ALT/SGPT 14 U/L (13-56); Albumin, Serum 3.7 g/dL (3.2-5.0); Alkaline Phosphatase 52 U/L (45-117); Anion Gap 5 (5-15); BUN 11 mg/dL (7-18); BUN/Creat Ratio 12.7 RATIO (10-20); Calcium,Total 8.8 mg/dL (8.5-10.1); Chloride 108 mmol/L (98-107); Creatinine, Serum 0.86 mg/dL (0.55-1.02); EST Glomerular Filtration Rate 83 mL/min (>60); Est Glom Filt Rate - Afr Amer 100 mL/min (>60); Globulin 3.7 g/dL (2.2-4.2); Glucose 104 mg/dL (74-106); Potassium 3.6 mmol/L (3.5-5.1); Protein, Total 7.4 g/dL (6.4-8.2); Sodium Level 137 mmol/L (136-145); Vitamin B12 553 pg/mL (211-911)
[2024-05-31 10:33] LABS: HPV Reflexed? NOT INDICATED
== END | disposition home or self-care (01) ==
PROVIDERS: PCP Internal Medicine; Referring Provider Nurse Practitioner Family; Visit Provider Nurse Practitioner Family
DX: Z12.4 Encounter for screening for malignant neoplasm of cervix (principal); R53.83 Other fatigue
CPT/HCPCS: 36415; 80053; 82607; 82652; 85025; 88175; G0145

== ENCOUNTER → 2025-03-15 | Outpatient (CLI) | payer OTHER, SELFPAY ==
[2025-03-15 18:33] LABS: Ferritin 97 ng/mL (22-378); Iron 163 ug/dL (50-170); Iron Binding Capacity,Total 281 ug/dL (250-450); Iron Binding Capacity,Unsat 118 ug/dL (228-428)
== END | disposition home or self-care (01) ==
LOC: BIMLAB 13:32
PROVIDERS: PCP Internal Medicine; Referring Provider Internal Medicine; Visit Provider Internal Medicine
DX: E61.1 Iron deficiency (principal)
CPT/HCPCS: 36415; 82728; 83540; 83550

== ENCOUNTER → 2025-10-03 | Outpatient (CLI) | payer OTHER, SELFPAY ==
[2025-10-03 17:30] LABS: AST(SGOT) 18 U/L (<=31); Alanine Aminotransfer ALT/SGPT 12 U/L (<=34); Albumin, Serum 4.5 g/dL (3.5-5.0); Alkaline Phosphatase 49 U/L (35-104); Anion Gap 9 (7-18); BUN 11 mg/dL (4-19); BUN/Creat Ratio 15.1 RATIO (10-20); Calcium,Total 9.4 mg/dL (7.6-11.0); Carbon Dioxide 25.4 mmol/L (20.0-29.0); Chloride 105 mmol/L (96-106); Globulin 2.6 g/dL (2.2-4.2); Glucose 81 mg/dL (70-99); Potassium 4.1 mmol/L (3.5-5.1); Vitamin B12 608 pg/mL (180-914)
[2025-10-06 13:08] LABS: ANTINUCLEAR ANTIBODIES DIRECT Negative (Negative)
== END | disposition home or self-care (01) ==
LOC: LAB 16:18
PROVIDERS: PCP Internal Medicine; Referring Provider Physician Assistant; Visit Provider Physician Assistant
DX: R20.2 Paresthesia of skin (principal); R20.0 Anesthesia of skin
CPT/HCPCS: 36415; 80053; 82607; 84207; 84439; 84443; 86038; 86225; 86235